=== PATIENT | female | born 1975 | race Caucasian/White ===

== ENCOUNTER 2017-03-18 08:38 | Emergency (ER) | payer MEDICAID ==
[~2017-03-18] VITALS: Ht 167.6 cm; Wt 93.2 kg
[~2017-03-18 08:38] MED LIST: ALBU8.5H6 IH; ALPR2TAB5 PO; D-ME1CAP PO; HYDR-971 PO; OXYC1TAB9 PO
[2017-03-18 08:45] VITALS: BP 124/86
[2017-03-18] MEDS ORDERED: PRED20TA PO (09:08)
--- NOTE | 2017-03-18 09:08 | PHYS DOC ---
Past History Past Medical History: Asthma Past Surgical History: Cholecystectomy, Hysterectomy, Other Smoking: Cigarettes, Less than 1pk/day Alcohol Use: None Drug Use: None Adult General Chief Complaint Chief Complaint: COUGH HPI HPI Patient is a 41-year-old female who complains of a cough 2 days. She has a history of asthma. She does have a nebulizer machine and has been taking albuterol treatments, she does have plenty of albuterol. She took 2 treatments last night and one this morning. She also uses a Breo inhaler. She does smoke cigarettes. Patient has had chills, does not know if she's had fever. She has had a lot of coughing and has almost lost her voice. She has a runny nose and postnasal drainage. Her son just had RSV. She has taken Benadryl, Robitussin-DM, and she took some of her stepmother's Phenergan With Codeine last night. PCP, none currently. She previously went to [place] on the [place] side but recently relocated here, I suggested [employer] [facility] in [facility]. Chart review does indicate that she's been here multiple times though. Review of Systems Review of Systems Constitutional: As in history of present illness Eyes: Denies change in visual acuity, redness, or eye pain [] HENT: Positive runny nose and postnasal drainage, has lost her voice Respiratory: As in history of present illness GI: Denies abdominal pain, nausea, vomiting, bloody stools or diarrhea [] : Denies dysuria or hematuria [] Musculoskeletal: Denies back pain or joint pain [] Integument: Denies rash or skin lesions [] Neurologic: Denies headache, focal weakness or sensory changes [] Allergies Allergies Allergies Coded Allergies Type Severity Reaction Last Updated Verified morphine Allergy Severe ANAPHYLAXIS 10/11/15 Yes acetaminophen Allergy Intermediate ONLY IN COMBINATION WITH DARVOCET 10/11/15 Yes propoxyphene napsylate Allergy Intermediate ITCHING AND RASH 10/11/15 Yes Physical Exam Physical Exam Constitutional: Well developed, well nourished, no acute distress, non-toxic appearance. Alert, mentating normally, frequent dry cough, sniffling. No dyspnea , speaks in full sentences. HENT: Normocephalic, atraumatic, bilateral external ears normal, nose normal. [] Eyes: conjunctiva normal, no discharge. [] Neck: Normal range of motion, no stridor. [] Cardiovascular:Heart rate regular rhythm, no murmur [] Lungs & Thorax: Good air movement bilaterally, expiratory wheezes throughout Skin: Warm, dry, no erythema, no rash. [] Extremities: No tenderness, no cyanosis, no clubbing, ROM intact, no edema. [] Neurologic: Alert and oriented X 3, normal motor function, normal sensory function, no focal deficits noted. [] Current Patient Data Vital Signs Vital Signs Date Time Temp Pulse Resp B/P (MAP) Pulse Ox O2 Delivery O2 Flow Rate FiO2 03/18/17 08:45 98.6 92 18 99 Room Air EKG EKG [] Radiology/Procedures Radiology/Procedures [] Course & Med Decision Making Course & Med Decision Making Pertinent Labs and Imaging studies reviewed. (See chart for details) 41-year-old female, smoker, with a history of asthma, presents with a cough for 2 days. She does have either allergy or URI symptoms with runny nose and postnasal drainage, and also she is wheezing. I advised the patient we will try a DuoNeb treatment and get her started on a short course of prednisone. Discussed with her symptom relief for her runny nose and postnasal drainage. 0915 recheck after DuoNeb treatment. Lungs are clear with no wheezes and good air movement throughout bilaterally. The patient is talking without dyspnea. She is stable for discharge. [] Dragon Disclaimer Dragon Disclaimer This chart was dictated in whole or in part using Voice Recognition software in a busy, high-work load, and often noisy Emergency Department environment. It may contain unintended and wholly unrecognized errors or omissions. Departure Departure: Impression: Primary Impression: Asthma exacerbation, mild Additional Impression: Rhinorrhea Disposition: HOME, SELF-CARE Condition: STABLE Referrals: PCP,NO (PCP) Patient Instructions: Allergic Rhinitis, Asthma Prevention-Brief, Asthma, Adult , Dgmm-ii-[id number], Upper Respiratory Infection, Adult, Fyjy-un-Lqst Additional Instructions: As we discussed, your cough is being caused by wheezing. We need to get your wheezing under control which will help. Use your nebulizer every 4 hours while awake. If you wake up coughing and wheezing in the middle the night, use it. Continue to use your Breo inhaler as instructed. You had your first dose of prednisone here in the emergency department. It the prescription filled today and take your next dose tomorrow morning. This will help your wheezing. I advise that you quit smoking, at least quit smoking while you are coughing and wheezing, and stay away from cigarette smoke. By an vpyn-ekb-rjsiked daily antihistamine such as Claritin (loratadine, generic ) and use once a day, some of your symptoms may be from seasonal allergies. Take an rjpz-dtg-lmkjevz Benadryl at bedtime which may help with your runny nose and postnasal drainage. You may also take Benadryl during the day, but not while driving, it can be sedating and dull your reflexes. Other symptom relievers include Tylenol or ibuprofen for aches and pains and fever, chills. Cough drops such as Valdovinos's. Vicks VapoRub to your neck for cough. Scripts Prednisone (PREDNISONE) 20 Mg Tablet 40 MG PO DAILY for WHEEZING for 5 Days, #10 TAB You had first dose in emergency department. Next dose Monday morning. Prov: BLADIMIR GRAHAM MD 03/18/17 Problem Qualifiers BLADIMIR GRAHAM MD March 18, 2017 09:08
[2017-03-18] MEDS ORDERED: IPRATRPIUM/ALBUTEROL 0.5/2.5MG 3 ML NEBU. NEB ONE (09:15)
[2017-03-18] MEDS ORDERED: predniSONE 10 MG TABLET PO ONE (09:15)
== END 2017-03-18 09:28 | disposition home or self-care (01) ==
LOC: ER 08:38
DX: J45.901 Unspecified asthma with (acute) exacerbation (principal); F17.210 Nicotine dependence, cigarettes, uncomplicated; Z88.5 Allergy status to narcotic agent; Z88.6 Allergy status to analgesic agent; Z88.8 Allergy status to other drugs, medicaments and biological substances
CPT/HCPCS: 94250; 94640; 99283; J7512; J7620; 99284

== ENCOUNTER 2017-11-21 11:20 | Emergency (ER) | payer MEDICAID, OTHER ==
[~2017-11-21] VITALS: Ht 167.6 cm; Wt 93.2 kg
[~2017-11-21 11:20] MED LIST changes: +PRED20TA PO
[2017-11-21 11:31] VITALS: BP 124/86
--- NOTE | 2017-11-21 12:45 | RAD ---
History: Right foot pain, no known injury. Comparison: None. Findings: AP, lateral, and oblique views of the right foot. No acute fracture or dislocation is identified. No significant degeneration is seen. No focal soft tissue swelling is appreciated. Impression: Unremarkable right foot radiographs. Electronically signed by: Delmar Navarro MD (11/21/2017 12:42 PM) [place] [id number]
--- NOTE | 2017-11-21 13:25 | PHYS DOC ---
Past History Past Medical History: Asthma, COPD Past Surgical History: Cholecystectomy, Hysterectomy, Other Smoking: Cigarettes, Less than 1pk/day Alcohol Use: None Drug Use: None Adult General Chief Complaint Chief Complaint: FOOT INJURY PAIN [facility] HPI Patient is a 42 year old F who presents with right foot pain over the past 3 months. She denies injury. She states that her pain is intermittent dull and worse with activity or palpation. Her pain is improved with rest. She denies any other associated symptoms. She denies any other exacerbating or alleviating factors. Review of Systems Review of Systems Constitutional: Denies fever or chills [] Eyes: Denies change in visual acuity, redness, or eye pain [] HENT: Denies nasal congestion or sore throat [] Respiratory: Denies cough or shortness of breath [] Cardiovascular: No additional information not addressed in HPI [] GI: Denies abdominal pain, nausea, vomiting, bloody stools or diarrhea [] : Denies dysuria or hematuria [] Musculoskeletal: Negative except history of present illness Integument: Denies rash or skin lesions [] Neurologic: Denies headache, focal weakness or sensory changes [] Endocrine: Denies polyuria or polydipsia [] All other systems were reviewed and found to be within normal limits, except as documented in this note. Family History Family History No pertinent family medical history was reported Current Medications Current Medications Current medications were reviewed Allergies Allergies Allergies Coded Allergies Type Severity Reaction Last Updated Verified morphine Allergy Severe ANAPHYLAXIS 10/11/15 Yes acetaminophen Allergy Intermediate ONLY IN COMBINATION WITH DARVOCET 10/11/15 Yes propoxyphene napsylate Allergy Intermediate ITCHING AND RASH 10/11/15 Yes Physical Exam Physical Exam Constitutional: Well developed, well nourished, no acute distress, non-toxic appearance. [] HENT: Normocephalic, atraumatic, Eyes: EOMI, conjunctiva normal, no discharge. [] Neck: Normal range of motion, no tenderness, supple, no stridor. [] Cardiovascular:Heart rate regular rhythm, no murmur [] Lungs & Thorax: Bilateral breath sounds clear to auscultation [] Abdomen: Bowel sounds normal, soft, no tenderness, no masses, no pulsatile masses. [] Skin: Warm, dry, no erythema, no rash. [] Back: No tenderness, no CVA tenderness. [] Extremities: No tenderness, no cyanosis, no clubbing, ROM intact, no edema. [] Right ankle mild lateral swelling and tenderness to palpation. Normal range of motion. Normal strength. Neurologic: Alert and oriented X 3, normal motor function, normal sensory function, no focal deficits noted. [] Psychologic: Affect normal, judgement normal, mood normal. [] Current Patient Data Vital Signs Vital Signs Date Time Temp Pulse Resp B/P (MAP) Pulse Ox O2 Delivery O2 Flow Rate FiO2 11/21/17 11:31 98.1 98 16 98 Room Air EKG EKG [] Radiology/Procedures Radiology/Procedures Three-view ankle x-ray Impressions: No acute disease noted Course & Med Decision Making Course & Med Decision Making Pertinent Labs and Imaging studies reviewed. (See chart for details) [] Dragon Disclaimer Dragon Disclaimer This electronic medical record was generated, in whole or in part, using a voice recognition dictation system. Departure Departure: Impression: Primary Impression: Ankle sprain Disposition: HOME, SELF-CARE Condition: STABLE Referrals: PCP,NO (PCP) Additional Instructions: Left Prior to completing her encounter. Problem Qualifiers Primary Impression: Ankle sprain Encounter type: initial encounter Involved ligament of ankle: anterior talofibular ligament Laterality: right Qualified Codes: S93.491A - Sprain of other ligament of right ankle, initial encounter MELVIN BAR MD Nov 21, 2017 13:25
== END 2017-11-21 14:00 | disposition home or self-care (01) ==
LOC: ER 11:20
DX: S93.491A Sprain of other ligament of right ankle, initial encounter (principal); J44.9 Chronic obstructive pulmonary disease, unspecified; Z90.710 Acquired absence of both cervix and uterus; Z87.891 Personal history of nicotine dependence; Z88.5 Allergy status to narcotic agent; Z88.6 Allergy status to analgesic agent; Z88.8 Allergy status to other drugs, medicaments and biological substances
CPT/HCPCS: 73630; 99284

== ENCOUNTER 2018-06-12 17:02 | Emergency (ER) | payer SELFPAY ==
[~2018-06-12] VITALS: Ht 152.4 cm; Wt 83.9 kg
[~2018-06-12 17:02] MED LIST changes: +OXYC-411 PO; -OXYC1TAB9 PO
--- NOTE | 2018-06-12 17:46 | PHYS DOC ---
Past History Past Medical History: Asthma, COPD Past Surgical History: Cholecystectomy, Hysterectomy, Other Smoking: Cigarettes, Less than 1pk/day Alcohol Use: None Drug Use: None Adult General Chief Complaint Chief Complaint: FOOT INJURY PAIN [facility] HPI 42-year-old female patient complaining of right foot pain after she had tooth pain for 1 month ago as a constant and sharp pain that getting worse with bearing weight. Patient states she didn't take any pain medication and didn't seek any medical attention but her pain is 10 over 10. Patient states she knows that she has fracture foot because she had the same symptom when had left foot fracture 2 years ago. Review of Systems Review of Systems Constitutional: Denies fever or chills [] Eyes: Denies change in visual acuity, redness, or eye pain [] HENT: Denies nasal congestion or sore throat [] Respiratory: Denies cough or shortness of breath [] Cardiovascular: No additional information not addressed in HPI [] GI: Denies abdominal pain, nausea, vomiting, bloody stools or diarrhea [] : Denies dysuria or hematuria [] Musculoskeletal: Denies back pain, reports joint pain [] Integument: Denies rash or skin lesions [] Neurologic: Denies headache, focal weakness or sensory changes [] Endocrine: Denies polyuria or polydipsia [] All other systems were reviewed and found to be within normal limits, except as documented in this note. Allergies Allergies Allergies Coded Allergies Type Severity Reaction Last Updated Verified morphine Allergy Severe ANAPHYLAXIS 10/11/15 Yes acetaminophen Allergy Intermediate ONLY IN COMBINATION WITH DARVOCET 10/11/15 Yes propoxyphene napsylate Allergy Intermediate ITCHING AND RASH 10/11/15 Yes Physical Exam Physical Exam Constitutional: Well nourished, no acute distress, non-toxic appearance. [] HENT: Normocephalic, atraumatic Eyes: PERRLA, EOMI, conjunctiva normal, no discharge. [] Neck: Normal range of motion, no tenderness, supple, no stridor. [] Cardiovascular:Heart rate regular rhythm, no murmur [] Lungs & Thorax: Bilateral breath sounds clear to auscultation [] Skin: Warm, dry, no erythema, no rash. [] Extremities: Right foot without deformity or ecchymosis or sign of injury, normal range of motion, no neurovascular deficit, Neurologic: Alert and oriented X 3, normal motor function, normal sensory function, no focal deficits noted. [] Psychologic: Affect anxious, mood normal. [] Current Patient Data Vital Signs Vital Signs Date Time Temp Pulse Resp B/P (MAP) Pulse Ox O2 Delivery O2 Flow Rate FiO2 06/12/18 17:15 98.2 83 20 99 Room Air EKG EKG [] Radiology/Procedures Radiology/Procedures [][place] [address] IMAGING REPORT Signed PATIENT: ARAVIND GABRIEL ACCOUNT: [id number] : 1975 LOCATION: ER AGE: 42 SEX: F EXAM STATUS: DEP ER ORD. PHYSICIAN: BETH RIDER MD REASON: fifth toe injury 1 month ago PROCEDURE: ANKLE RIGHT 3V EXAM: 1. Right ankle 3 views. 2. Right toes 3 views. HISTORY: Fifth toe injury. Ankle and toe pain. COMPARISON: None. FINDINGS: The joint spaces and alignment of the ankle mortise are maintained. No fractures are identified. No fractures are appreciated within the toes or visualized foot. Joint spaces and alignment are maintained. IMPRESSION: 1. No fracture or malalignment. Electronically signed by: Daisha Zheng MD (06/12/2018 10:26 PM) [facility] DICTATED AND SIGNED BY: FELA ZHENG MD DATE: 06/12/18 2224 CC: JENNIFER GREGORY MD; BETH RIDER MD; PCP,NO ~ Course & Med Decision Making Course & Med Decision Making Pertinent Imaging studies reviewed. (See chart for details) discharge: I've spoken with the patient and/or caregivers. I've explained the patient's condition, diagnosis and treatment plan based on information available to me at this time. I've answered the patient's and/or caregivers questions and addressed any concerns. The patient and/or caregivers have a good understanding the patient's diagnosis, condition and treatment plan as can be expected at this point. Vital signs have been stabilized. The patient's condition is stable for discharge from the emergency department. The patient will pursue further outpatient evaluation with her primary care provider or other designated consulting physician as outlined in the discharge instructions. Patient and/or caregivers are agreeable to this plan of care and follow-up instructions have been explained in detail. The patient and/or caregivers have received these instructions in written format and expressed understanding of these discharge instructions. The patient and her caregivers are aware that if any significant change in condition or worsening of symptoms should prompt him to immediately return to this of the closest emergency department. If an emergent department is not readily available I would encourage him to call 911. [] Dragon Disclaimer Dragon Disclaimer This electronic medical record was generated, in whole or in part, using a voice recognition dictation system. Departure Departure: Impression: Primary Impression: Right foot injury Disposition: HOME, SELF-CARE (at 1745) Condition: STABLE Referrals: PCP,MALCOLM (PCP) Patient Instructions: Foot Contusion Additional Instructions: Apply ice on the affected area Follow-up with your primary care physician in 3-5 days Return to ER if not getting better BETH RIDER MD Jun 12, 2018 17:46 JENNIFER GREGORY MD Jun 12, 2018 20:47
[2018-06-12 17:51] VITALS: BP 121/70
--- NOTE | 2018-06-12 22:29 | RAD ---
EXAM: 1. Right ankle 3 views. 2. Right toes 3 views. HISTORY: Fifth toe injury. Ankle and toe pain. COMPARISON: None. FINDINGS: The joint spaces and alignment of the ankle mortise are maintained. No fractures are identified. No fractures are appreciated within the toes or visualized foot. Joint spaces and alignment are maintained. IMPRESSION: 1. No fracture or malalignment. Electronically signed by: Daisha Zheng MD (06/12/2018 10:26 PM) [facility]
== END 2018-06-12 17:53 | disposition home or self-care (01) ==
LOC: ER 17:02
DX: S99.921A Unspecified injury of right foot, initial encounter (principal); K08.89 Other specified disorders of teeth and supporting structures; J44.9 Chronic obstructive pulmonary disease, unspecified; F17.210 Nicotine dependence, cigarettes, uncomplicated; Z88.5 Allergy status to narcotic agent; Z88.6 Allergy status to analgesic agent; Z88.8 Allergy status to other drugs, medicaments and biological substances; X58.XXXA Exposure to other specified factors, initial encounter; Y93.89 Activity, other specified; Y92.89 Other specified places as the place of occurrence of the external cause; Y99.8 Other external cause status
CPT/HCPCS: 73610; 73660; 99284

== ENCOUNTER 2018-07-09 17:54 | Emergency (ER) | payer SELFPAY ==
[~2018-07-09] VITALS: Ht 165.1 cm; Wt 97.5 kg
[2018-07-09 17:54] VITALS: BP 133/88
[2018-07-09] MEDS ORDERED: IV NORMAL SALINE 1,000ML 1,000 ML IV ONE (18:45)
[2018-07-09] MEDS ORDERED: LIDO:MAALOX 1:1 20 ML SINGLE DOSE. PO ONE (18:45)
== END 2018-07-09 19:15 | disposition left against medical advice (07) ==
LOC: ER 17:54
DX: R19.7 Diarrhea, unspecified (principal); R11.10 Vomiting, unspecified; Z53.21 Procedure and treatment not carried out due to patient leaving prior to being seen by health care provider
CPT/HCPCS: 36415; 84484; 99281

== ENCOUNTER 2018-07-11 10:35 | Emergency (ER) | payer SELFPAY ==
[~2018-07-11] VITALS: Ht 165.1 cm; Wt 97.5 kg
[2018-07-11] MEDS ORDERED: IV NORMAL SALINE 1,000ML 1,000 ML IV ONE (11:15)
[2018-07-11] MEDS ORDERED: ONDANSETRON PF 4 MG/2 ML VIAL. IV ONE (11:30)
--- NOTE | 2018-07-11 11:43 | PHYS DOC ---
Past History Past Medical History: Asthma, Bipolar, CHF, COPD, Diabetes Past Surgical History: Cholecystectomy, Hysterectomy, Other Smoking: Cigarettes, Less than 1pk/day Alcohol Use: None Drug Use: Marijuana Adult General Chief Complaint Chief Complaint: NAUSEA/VOMITING/DIARRHEA HPI HPI 42-year-old female presenting the emergency department today with epigastric abdominal pain. 8 out of 10. Started on Monday. Comes and goes. She was seen previous but left prior to finishing her ER visit. She is unable to keep food down. She describes nonbloody nonbilious emesis. She also describes loose stools since Monday. She has a history of cholecystectomy and hysterectomy. Today she had a few twitches in her face which is now resolved. She denies facial droop and slurred speech difficulty walking vision changes or diplopia. Review of systems is negative for fevers chills chest pain shortness of breath. All other review of systems is negative unless otherwise noted in history of present illness. ED course: 42-year-old female presenting with nausea vomiting abdominal pain. Afebrile with mild tachycardia. Otherwise saturating well on room air. On examination the patient is comfortable and well-appearing. Her abdomen is soft and nondistended. Negative McBurney's point. Negative Montes sign. Surgical scar noted. Blood work obtained along with IV fluids nausea and pain medication administered. Urinalysis ordered along with test. Workup on CT shows possible colitis. I sat down with the CT results. Patient's PCP can follow-up on non-acute findings. Patient demonstrates verbal understanding. Otherwise workup is unremarkable. Repeat abdominal exam is soft and nontender performed at around 2 PM. I discussed the limitations of evaluation of abdominal pain in the Emergency Department. We discussed the risks involved in missed or delayed diagnosis including but not limited to and disability. I offered the pt overnight observation to monitor for worsening clinical condition and serial abdominal exams to monitor the patient. The patient demonstrates verbal understanding of risk of , lost wages, emotional greif of family, and disability, as well as the risks of missed diagnosis, the patient declined further monitoring at this time. The patient has medical decision making capacity, and given opportunity to ask questions about the diagnosis and recommended plan of care. I explained to the patient the importance of close follow-up as outlined in the discharge paperwork, and returning to the emergency department for new or worsening symptoms, or if the patient is agreeable to being monitored in the hospital for serial abdominal exams. I ordered that the patient return to the emergency department if they are still having abdominal pain in 12-24 hours for repeat abdominal exam and reevaluation. They are agreeable to the plan. The patient has been examined and was not found to have an emergency medical condition. The patient was then discharged home in stable condition to follow up with their primary care physician over the next 2-3 days. They were to return if their symptoms worsened or if they were concerned for any reason. They were also instructed to return to the emergency department if they were unable to get the recommended and appropriate follow-up. [id number] discharge instructions and return precautions were given. Patient's questions were answered to their satisfaction. Patient is comfortable with plan. Review of Systems Review of Systems SEE ABOVE. Current Medications Current Medications Current Medications Medications (Trade) Dose Ordered Sig/César Start Time Stop Time Status Last Admin Dose Admin Fentanyl Citrate (Fentanyl 2ml Vial) 50 mcg PRN Q30MIN PRN 07/11/18 11:30 Ondansetron HCl (Zofran) 4 mg 1X ONCE 07/11/18 11:30 07/11/18 11:32 DC Sodium Chloride 1,000 ml @ 1,000 mls/hr 1X ONCE 07/11/18 11:15 07/11/18 12:14 Allergies Allergies Allergies Coded Allergies Type Severity Reaction Last Updated Verified morphine Allergy Severe ANAPHYLAXIS 10/11/15 Yes acetaminophen Allergy Intermediate ONLY IN COMBINATION WITH DARVOCET 10/11/15 Yes propoxyphene napsylate Allergy Intermediate ITCHING AND RASH 10/11/15 Yes Physical Exam Physical Exam SEE ABOVE Constitutional: Well developed, well nourished, no acute distress, non-toxic appearance. [] HENT: Normocephalic, atraumatic, bilateral external ears normal, oropharynx moist, no oral exudates, nose normal. [] Eyes: PERRLA, EOMI, conjunctiva normal, no discharge. [] Neck: Normal range of motion, no tenderness, supple, no stridor. [] Cardiovascular:Heart rate regular rhythm, no murmur [] Lungs & Thorax: Bilateral breath sounds clear to auscultation [] Abdomen: Bowel sounds normal, soft, no tenderness, no masses, no pulsatile masses. [] Skin: Warm, dry, no erythema, no rash. [] Back: No tenderness, no CVA tenderness. [] Extremities: No tenderness, no cyanosis, no clubbing, ROM intact, no edema. [] Neurologic: Alert and oriented X 3, normal motor function, normal sensory function, no focal deficits noted. [] Psychologic: Affect normal, judgement normal, mood normal. [] Current Patient Data Vital Signs Vital Signs Date Time Temp Pulse Resp B/P (MAP) Pulse Ox O2 Delivery O2 Flow Rate FiO2 07/11/18 10:45 98.1 99 18 96 Room Air EKG EKG [] Radiology/Procedures Radiology/Procedures [] Course & Med Decision Making Course & Med Decision Making Pertinent Labs and Imaging studies reviewed. (See chart for details) [] Dragon Disclaimer Dragon Disclaimer This electronic medical record was generated, in whole or in part, using a voice recognition dictation system. Departure Departure: Impression: Primary Impression: Epigastric abdominal pain Additional Impressions: Nausea and vomiting Diarrhea Disposition: HOME, SELF-CARE Condition: STABLE Referrals: PCPMALCOLM (PCP) Patient Instructions: Abdominal Pain, Women, Nausea and Vomiting Additional Instructions: Thank you for allowing us to participate in your care today. Return to the emergency department you have any new or worsening symptoms, or if you are concerned for any reason. Return to emergency department if you have any new or concerning symptoms including but not limited to fever, chills, nausea, vomiting, intractable pain, any new rashes, chest pain, shortness of air , uncontrolled bleeding, difficulty breathing, and/or vision loss. Follow up with your primary care physician within 3 days. Call your Primary Doctor tomorrow and inform them of your visit today. If you do not have a primary care provider we are happy to provide you with a list of our primary care providers contact information. This condition should be evaluated by your primary care physician and any recommended consulting services for continued management within 2-3 days after discharge. If at any time, you are having difficulty getting into your primary care doctor or a specialist, return to the emergency department. Scripts Ondansetron Hcl (ZOFRAN) 4 Mg Tablet 1 TAB PO PRN Q6HRS PRN for NAUSEA, #6 TAB Prov: RANGEL FARFAN MD 07/11/18 Problem Qualifiers RANGEL FARFAN MD Jul 11, 2018 11:43
[2018-07-11 12:06] LABS: BILIRUBIN,URINE NEG (NEG); CLARITY,URINE HAZY; COLOR,URINE AMBER; GLUCOSE,URINE 100 mg/dL (NEG)
[2018-07-11 12:07] LABS: BACTERIA,URINE MOD /HPF (0-FEW); NITRITE,URINE NEG (NEG); RBC,URINE RARE /HPF (0-2); SQUAMOUS EPITHELIAL CELL,UR MOD /LPF; UROBILINOGEN,URINE 1 mg/dL (0.2 mg/dL)
[2018-07-11 12:37] LABS: BASO % 0 % (0-3); EOS # 0.1 x10^3/uL (0.0-0.7); EOS % 1 % (0-3); HEMATOCRIT 44.8 % (36.0-47.0); HEMOGLOBIN 15.2 g/dL (12.0-15.5); LYMPH # 2.3 x10^3/uL (1.0-4.8); LYMPH % 22 % (24-48); MEAN CORPUSCULAR HEMOGLOBIN 30 pg (25-35); MEAN CORPUSCULAR HGB CONC 34 g/dL (31-37); MEAN CORPUSCULAR VOLUME 88 fL (79-100); MONO # 0.7 x10^3/uL (0.0-1.1); MONO % 7 % (0-9); NEUT # 7.4 x10^3uL (1.8-7.7); NEUT % 70 % (31-73); PLATELET COUNT 305 x10^3/uL (140-400); RED BLOOD COUNT 5.07 x10^6/uL (3.50-5.40); RED CELL DISTRIBUTION WIDTH 13.6 % (11.5-14.5); WHITE BLOOD COUNT 10.5 x10^3/uL (4.0-11.0)
[2018-07-11] MEDS ORDERED: NITROGLYCERIN SUBLINGUAL 0.4 MG BOTTLE OF 25. SL ONE (12:45)
[2018-07-11] MEDS ORDERED: ASPIRIN 81 MG TAB.CHEW PO ONE (12:45)
[2018-07-11 12:47] LABS: PREG TEST PT QUAL NEGATIVE (NEG)
[2018-07-11 12:51] LABS: CALCIUM 9.3 mg/dL (8.5-10.1); DIRECT BILIRUBIN 0.2 mg/dL (0.0-0.2); GFR 61.4; POTASSIUM 3.6 mmol/L (3.5-5.1); TOTAL BILIRUBIN 0.8 mg/dL (0.2-1.0); TOTAL PROTEIN 8.8 g/dL (6.4-8.2)
[2018-07-11] MEDS ORDERED: IOHEXOL 300 MG/ML 75 ML VIAL. IV ONE (13:00)
--- NOTE | 2018-07-11 13:34 | RAD ---
Examination: CT of the abdomen pelvis with IV contrast HISTORY: History of abdominal pain, diarrhea COMPARISON: None available TECHNIQUE: Axial CT images of the abdomen pelvis were performed with IV contrast. Coronal and sagittal reformats performed Exposure: One or more of the following individualized dose reduction techniques were utilized for this examination: 1. Automated exposure control 2. Adjustment of the mA and/or kV according to patient size 3. Use of iterative reconstruction technique FINDINGS: The bibasilar lungs are clear. No evidence of free air identified in the abdomen. Minimally decreased attenuation noted in the liver. Small low-density focus identified in the left lobe of the liver probably focal fat. The visualized spleen, adrenals grossly appears unremarkable. Cholecystectomy clips identified. The stomach is mildly distended. The visualized pancreas grossly appears unremarkable. Few fluid distended small bowel loops identified in the lower mid abdomen and in the right lower quadrant of abdomen. There is minimal enhancement of the wall of the distal small bowel loops. The appendix is normal. Small amount of fluid identified in the ascending colon. Urinary bladder is minimally distended. There is mild thickened appearance of the urinary bladder wall. The bilateral kidneys enhance symmetrically. No evidence of hydronephrosis. Posterior cervical fusion hardware identified at L5-S1 vertebral levels with intervertebral disc spacer. Mild degenerative changes identified in the lumbar spine. IMPRESSION: 1. Minimal fluid distended small bowel loops identified in the mid abdomen in the right lower quadrant abdomen, nonspecific could be mild enteritis. 2. Small amount of fluid identified in the ascending colon probably diarrhea. 3. Minimal hepatic steatosis. Cholecystectomy changes. 4. Mild thickened appearance of the urinary bladder wall probably due to minimal distention however underlying mucosal pathology is not completely excluded. Electronically signed by: Fritz Benitez MD (07/11/2018 1:31 PM) [id number]
[2018-07-11] MEDS ORDERED: ONDA4TAB7 PO (14:03)
[2018-07-11 14:19] VITALS: BP 111/80
== END 2018-07-11 14:24 | disposition home or self-care (01) ==
LOC: ER 10:35
DX: R10.13 Epigastric pain (principal); R11.2 Nausea with vomiting, unspecified; R19.7 Diarrhea, unspecified; R00.0 Tachycardia, unspecified; F31.9 Bipolar disorder, unspecified; I50.9 Heart failure, unspecified; J44.9 Chronic obstructive pulmonary disease, unspecified; E11.9 Type 2 diabetes mellitus without complications; F17.210 Nicotine dependence, cigarettes, uncomplicated; Z90.49 Acquired absence of other specified parts of digestive tract; Z90.710 Acquired absence of both cervix and uterus; Z88.5 Allergy status to narcotic agent; Z88.6 Allergy status to analgesic agent; Z88.8 Allergy status to other drugs, medicaments and biological substances
CPT/HCPCS: 36415; 74177; 80048; 80076; 81001; 83690; 84703; 85025; 87086; 96361; 96374; 96375; 99285; J2405; J3010; Q9967; J7030

== ENCOUNTER 2018-12-26 08:14 | Emergency (ER) | payer OTHER ==
[~2018-12-26] VITALS: Ht 165.1 cm; Wt 86.2 kg
[~2018-12-26 08:14] MED LIST changes: +HYDR-3165 PO; -HYDR-971 PO; +ONDA4TAB7 PO
[2018-12-26 09:18] VITALS: BP 144/85
[2018-12-26] MEDS ORDERED: Percogesic PO (09:21)
[2018-12-26] MEDS ORDERED: PENI500T PO (09:21)
--- NOTE | 2018-12-26 09:21 | PHYS DOC ---
Past History Past Medical History: Asthma, COPD, Other Past Surgical History: Cholecystectomy, , Hysterectomy, Other Smoking: Cigarettes, Less than 1pk/day Alcohol Use: Occasionally Drug Use: None Adult General Chief Complaint Chief Complaint: DENTAL PROBLEM [facility] HPI Patient is a 43 year old female who presents with complaining of dental pain. Patient complaining of right lower jaw and tooth pain for 1 week as a constant pain that getting gradually worse without fever and chills, nausea and vomiting , recent fracture of tooth. Patient also complaining of chronic low back pain for several years without new change. Review of Systems Review of Systems Constitutional: Denies fever or chills [] Eyes: Denies change in visual acuity, redness, or eye pain [] HENT: Denies nasal congestion or sore throat [] Respiratory: Denies cough or shortness of breath [] Cardiovascular: No additional information not addressed in HPI [] GI: Denies abdominal pain, nausea, vomiting, bloody stools or diarrhea [] : Denies dysuria or hematuria [] Musculoskeletal: Reports back pain, denies joint pain [] Integument: Denies rash or skin lesions [] Neurologic: Denies headache, focal weakness or sensory changes [] Endocrine: Denies polyuria or polydipsia [] All other systems were reviewed and found to be within normal limits, except as documented in this note. Allergies Allergies Allergies Coded Allergies Type Severity Reaction Last Updated Verified morphine Allergy Severe ANAPHYLAXIS 10/11/15 Yes acetaminophen Allergy Intermediate ONLY IN COMBINATION WITH DARVOCET 10/11/15 Yes propoxyphene napsylate Allergy Intermediate ITCHING AND RASH 10/11/15 Yes Physical Exam Physical Exam Constitutional: Well nourished, mild acute distress, non-toxic appearance. [] HENT: Normocephalic, atraumatic, bilateral external ears normal, oropharynx moist, no oral exudates, nose normal, extensive dental cavities and missing teeth, tooth #28 with cavity and tenderness and inflamed gum Eyes: PERRLA, EOMI, conjunctiva normal, no discharge. [] Neck: Normal range of motion, no tenderness, supple, no stridor. [] Cardiovascular:Heart rate regular rhythm, no murmur [] Lungs & Thorax: Bilateral breath sounds clear to auscultation [] Back: No tenderness, no CVA tenderness. [] Extremities: No tenderness, no cyanosis, no clubbing, ROM intact, no edema. [] Neurologic: Alert and oriented X 3 Psychologic: Affect anxious, judgement normal, mood normal. [] Current Patient Data Vital Signs Vital Signs Date Time Temp Pulse Resp B/P (MAP) Pulse Ox O2 Delivery O2 Flow Rate FiO2 12/26/18 08:46 98.2 87 16 99 Room Air EKG EKG [] Radiology/Procedures Radiology/Procedures [] Course & Med Decision Making Course & Med Decision Making Evaluation of patient in ER showed 43-year-old female patient with complaining of dental pain for 1 week and chronic back pain. Patient had extensive dental cavities and poor dental hygiene. Patient currently smoking. Patient was advised to follow up with her dentist and quit smoking and follow up with her primary care physician for chronic back pain. Dragon Disclaimer Dragon Disclaimer This electronic medical record was generated, in whole or in part, using a voice recognition dictation system. Departure Departure: Impression: Primary Impression: Abscess, dental Additional Impressions: Dental caries Tobacco abuse Tobacco abuse counseling Chronic back pain Disposition: HOME, SELF-CARE (at 0930) Condition: STABLE Referrals: PCP,NO (PCP) Patient Instructions: Chronic Back Pain, Dental Abscess, Smoking Cessation, Tips For Success Additional Instructions: Follow-up with your dentist in 2-3 days Follow-up with your primary care physician in 2-3 days for chronic back pain Return to ER if not getting better Scripts [Percogesic] No Conflict Check 1 TAB PO QID PRN for PAIN, #14 Prov: BETH RIDER MD 12/26/18 Penicillin V Potassium (PENICILLIN V POTASSIUM) 500 Mg Tablet 1 TAB PO QID for Infection, #40 TAB Prov: BETH RIDER MD 12/26/18 Problem Qualifiers BETH RIDER MD Dec 26, 2018 09:21
[2018-12-26] MEDS ORDERED: KETOROLAC 60 MG/2 ML VIAL. IM ONE (09:45)
== END 2018-12-26 09:27 | disposition home or self-care (01) ==
LOC: ER 08:14
DX: K04.7 Periapical abscess without sinus (principal); K02.9 Dental caries, unspecified; G89.29 Other chronic pain; M54.5 Low back pain; F17.210 Nicotine dependence, cigarettes, uncomplicated; J44.9 Chronic obstructive pulmonary disease, unspecified; Z71.6 Tobacco abuse counseling; Z88.5 Allergy status to narcotic agent; Z88.6 Allergy status to analgesic agent; Z88.8 Allergy status to other drugs, medicaments and biological substances
CPT/HCPCS: 96372; 99283; J1885

== ENCOUNTER 2020-03-31 15:32 | Emergency (ER) | payer MEDICAID, OTHER ==
[~2020-03-31] VITALS: Ht 165.1 cm; Wt 94.2 kg
[2020-03-31 15:32] VITALS: BP 129/89
[~2020-03-31 15:32] MED LIST changes: -OXYC-411 PO; +OXYC1TAB20 PO; +PENI500T PO; +Percogesic PO
[2020-03-31] MEDS ORDERED: GABA-586 PO (16:11)
--- NOTE | 2020-03-31 16:11 | PHYS DOC ---
Past History Past Medical History: Asthma, COPD, Other Past Surgical History: Cholecystectomy, , Hysterectomy, Other Smoking: Cigarettes, Less than 1pk/day Alcohol Use: Occasionally Drug Use: None General Adult EDM: Chief Complaint: MULTIPLE COMPLAINTS HPI: HPI: Patient is a 44-year-old female with a history of MS, lupus who is visiting from out of town who states that she has a spot in her head that seems to be leaking and she also has some pain coming from her right buttock down into her lower leg. She states after she wore socks all day she noticed a little imprint of swelling around the top of her socks. She denies any chest pain shortness of breath or dyspnea on exertion. She is worried about some kind of staph infection in her scalp. [] Review of Systems: Review of Systems: Constitutional: Denies fever or chills Eyes: Denies change in visual acuity HENT: Denies nasal congestion or sore throat Respiratory: Denies cough or shortness of breath Cardiovascular: Denies chest pain or edema GI: Denies abdominal pain, nausea, vomiting, bloody stools or diarrhea : Denies dysuria Musculoskeletal: Per HPI Integument: Denies rash Neurologic: Denies headache, focal weakness or sensory changes Endocrine: Per HPI Lymphatic: Denies swollen glands Psychiatric: Reports anxiety Heart Score: Risk Factors: Risk Factors: DM, Current or recent (<one month) smoker, HTN, HLP, family history of CAD, obesity. Risk Scores: Score 0 - 3: 2.5% MACE over next 6 weeks - Discharge Home Score 4 - 6: 20.3% MACE over next 6 weeks - Admit for Clinical Observation Score 7 - 10: 72.7% MACE over next 6 weeks - Early Invasive Strategies Allergies: Allergies: Allergies Coded Allergies Type Severity Reaction Last Updated Verified morphine Allergy Severe ANAPHYLAXIS 03/31/20 Yes acetaminophen Allergy Intermediate ONLY IN COMBINATION WITH DARVOCET 03/31/20 Yes propoxyphene napsylate Allergy Intermediate ITCHING AND RASH 03/31/20 Yes Physical Exam: PE: Constitutional: Well developed, well nourished, no acute distress, non-toxic appearance. [] HENT: Normocephalic, atraumatic, I do not notice any lesion on her scalp at all.. [] Eyes: PERRLA, EOMI, conjunctiva normal, no discharge. [] Neck: Normal range of motion, no tenderness, supple, no stridor. [] Cardiovascular:Heart rate regular rhythm, no murmur [] Lungs & Thorax: Bilateral breath sounds clear to auscultation [] Abdomen: Bowel sounds normal, soft, no tenderness, no masses, no pulsatile masses. [] Skin: Warm, dry, no erythema, no rash. [] Back: No tenderness, no CVA tenderness. [] Extremities: No tenderness, no cyanosis, no clubbing, ROM intact, no edema, negative Homans sign [] Neurologic: Alert and oriented X 3, normal motor function, normal sensory function, no focal deficits noted. [] Psychologic: Unusual, confrontational affect [] EKG: EKG: [] Radiology/Procedures: Radiology/Procedures: [] Course & Med Decision Making: Course & Med Decision Making Pertinent Labs and Imaging studies reviewed. (See chart for details) [] Dragon Disclaimer: Dragon Disclaimer: This electronic medical record was generated, in whole or in part, using a voice recognition dictation system. Departure Departure: Impression: Primary Impression: Paresthesia of right leg Disposition: HOME/RESIDENCE PRIOR TO ADM Condition: STABLE Referrals: GERONIMO LEIGH (PCP) Patient Instructions: Paresthesia Scripts Gabapentin (GABAPENTIN ) 300 Mg Capsule 300 MG PO TID for NEUROGENIC PAIN for 30 Days, #90 CAP Prov: FARIDEH PENA DO 03/31/20 FARIDEH PENA DO March 31, 2020 16:11
== END 2020-03-31 16:20 | disposition home or self-care (01) ==
LOC: ER 15:32
DX: R20.2 Paresthesia of skin (principal); M54.5 Low back pain; J44.9 Chronic obstructive pulmonary disease, unspecified; G35 Multiple sclerosis; F17.210 Nicotine dependence, cigarettes, uncomplicated; Z90.49 Acquired absence of other specified parts of digestive tract; Z98.890 Other specified postprocedural states; Z90.710 Acquired absence of both cervix and uterus; Z88.5 Allergy status to narcotic agent; Z88.8 Allergy status to other drugs, medicaments and biological substances
CPT/HCPCS: 99283